=== PATIENT | male | born 1990 | race African-American/Black ===

== ENCOUNTER 2019-07-02 18:38 | Emergency (ER) | payer SELFPAY ==
[~2019-07-02] VITALS: Ht 167.6 cm; Wt 65.0 kg
[2019-07-02 18:52] VITALS: Ht 167.6 cm; Wt 65.0 kg
[2019-07-02] MEDS ORDERED: TAMIFLU75 MG PO (19:56)
[2019-07-02 20:27] VITALS: BP 133/90
== END 2019-07-02 20:27 | disposition home or self-care (01) ==
LOC: D.ER 18:38
DX: J11.1 Influenza due to unidentified influenza virus with other respiratory manifestations (principal); Z72.0 Tobacco use